=== PATIENT | male | born 1985 | race Hispanic/Latino ===

== ENCOUNTER 2017-07-20 04:10 | Emergency (ER) | payer BC ==
[2017-07-20 04:25] VITALS: PULSE 79; TEMP 98
--- NOTE | 2017-07-20 04:43 | ED PDOC ---
HPI: Abdomen Time Seen by Provider: 07/20/17 04:20 Chief Complaint (Nursing): Abdominal Pain Chief Complaint (Provider): Abdominal Pain History Per: Patient History/Exam Limitations: no limitations Onset/Duration Of Symptoms: Hrs (x12) Current Symptoms Are (Timing): Still Present Additional Complaint(s): Tc Ward is a 31 year old male with a history of diverticular disease that presents to the ED with a chief complaint of abdominal pain that he has been experiencing for the past 12 hours and has been worsening since onset. Patient additionally reports that he has a constipation sensation, and that his last bowel movement was 2 days ago. Patient denies any associated fever , nausea, vomiting, or diarrhea. Past Medical History Reviewed: Historical Data, Nursing Documentation, Vital Signs Vital Signs: Last Vital Signs Temp 98.0 F 07/20/17 07:30 Pulse 79 07/20/17 07:30 Resp 16 07/20/17 07:30 BP 122/65 07/20/17 07:30 Pulse Ox 97 07/20/17 09:10 - Medical History PMH: Back Problems, Diverticulitis, Sleep Apnea - Surgical History Surgical History: No Surg Hx - Family History Family History: States: Unknown Family Hx - Social History Current smoker - smoking cessation education provided: No Alcohol: None Drugs: Denies - Home Medications Home Medications: Ambulatory Orders Medication Instructions Recorded Polyethylene Glycol 3350 [Miralax] 17 gr PO DAILY #30 packet 07/20/17 Sod Phos,M-B/Na Phos,Di-Ba [Fleet 133 ml RC QOTHERDAY #3 enema 07/20/17 Enema] - Allergies Allergies/Adverse Reactions: Allergies Allergy/AdvReac Type Severity Reaction Status Date / Time No Known Allergies Allergy Verified 08/31/15 05:57 Review of Systems ROS Statement: Except As Marked, All Systems Reviewed And Found Negative Gastrointestinal: Positive for: Abdominal Pain Physical Exam - Reviewed Nursing Documentation Reviewed: Yes Vital Signs Reviewed: Yes - Physical Exam Appears: Positive for: Non-toxic, No Acute Distress Head Exam: Positive for: ATRAUMATIC Skin: Positive for: Normal Color, Warm Eye Exam: Positive for: Normal appearance, EOMI, PERRL ENT: Positive for: Normal ENT Inspection Neck: Positive for: Normal, Supple Cardiovascular/Chest: Positive for: Regular Rate, Rhythm. Negative for: Murmur Respiratory: Positive for: Normal Breath Sounds. Negative for: Wheezing Gastrointestinal/Abdominal: Positive for: Tenderness (Lower abdominal TTP, RUQ TTP). Negative for: Normal Exam Back: Positive for: Normal Inspection. Negative for: L CVA Tenderness, R CVA Tenderness Extremity: Positive for: Normal ROM. Negative for: Deformity, Swelling Neurologic/Psych: Positive for: Alert, Oriented. Negative for: Motor/Sensory Deficits - Laboratory Results Result Diagrams: 07/20/17 04:56 07/20/17 04:56 - ECG O2 Sat by Pulse Oximetry: 97 (RA) Pulse Ox Interpretation: Normal Medical Decision Making Medical Decision Making: Impression: 31 year old male with abdominal pain and history of diverticular disease Plan: * X-Ray Abdomen with Chest * CMP * CBC * Lipase * Urine dip * Urinalysis * Toradol 30 mg IV * Reevaluation 5:10 CT Scan Abd/Pelvis with PO or IV contrast ordered. 7:00 Patient signed out to Dr. Rios pending CT Scan. Scribe Attestation: Documented by Maryana Pina, acting as a scribe for Haile Hoff MD. Provider Scribe Attestation: All medical record entries made by the Scribe were at my direction and personally dictated by me. I have reviewed the chart and agree that the record accurately reflects my personal performance of the history, physical exam, medical decision making, and the department course for this patient. I have also personally directed, reviewed, and agree with the discharge instructions and disposition. Disposition - Clinical Impression Clinical Impression: Fecal retention - Patient ED Disposition Is Patient to be Admitted: Transfer of Care - Disposition Disposition: Transfer of Care Disposition Time: 07:00 Condition: STABLE Prescriptions: Polyethylene Glycol 3350 [Miralax] 17 gr PO DAILY #30 packet Sod Phos,M-B/Na Phos,Di-Ba [Fleet Enema] 133 ml RC QOTHERDAY #3 enema Instructions: Laxative, Stool Softeners (By mouth), Constipation (ED), High Fiber Diet (ED) Forms: [employer] (Turkish) Patient Signed Over To: Mercedez Rios
[2017-07-20] MEDS ORDERED: Iohexol 240 (50 ml) PO ONE (05:10)
[2017-07-20 05:14] LABS: BASO % 0.5 % (0.0-2.0); EOS # 0.3 K/uL (0.0-0.7); EOS % 2.7 % (0.0-4.0); HEMOGLOBIN 13.6 g/dL (12.0-18.0); LYMPH # 2.8 K/uL (1.0-4.3); LYMPH % 29.4 % (20.0-40.0); MEAN CELL VOLUME 84.1 fl (80.0-94.0); MEAN CORPUSCULAR HEMOGLOBIN 27.8 pg (27.0-31.0); MEAN PLATELET VOLUME 8.2 fl (7.2-11.7); MONO % 10.2 % (0.0-10.0); NEUT # 5.4 K/uL (1.8-7.0); NEUT % 57.2 % (50.0-75.0); NRBC % 0.1 % (0.0-0.0); RBC 4.9 Mil/uL (4.40-5.90); RED CELL DISTRIBUTION WIDTH 13.7 % (11.5-14.5); WHITE BLOOD COUNT 9.5 K/uL (4.8-10.8)
[2017-07-20 05:15] LABS: URINE BACTERIA RARE (<OCC); URINE BILIRUBIN NEGATIVE (NEGATIVE); URINE BLOOD NEGATIVE (NEGATIVE); URINE CLARITY CLEAR (Clear); URINE COLOR STRAW (YELLOW); URINE GLUCOSE (UA) NEG (Normal); URINE LEUKOCYTE ESTERASE NEG Leu/uL (Negative); URINE NITRATE NEGATIVE (NEGATIVE); URINE PROTEIN NEGATIVE (NEGATIVE); URINE UROBILINOGEN 0.2-1.0 mg/dL (0.2-1.0)
[2017-07-20 05:32] LABS: ALB/GLOB RATIO 1.4 (1.0-2.1); ALBUMIN 4.4 g/dL (3.5-5.0); ALT/SGPT 37 U/L (21-72); AST/SGOT 23 U/L (17-59); BLOOD UREA NITROGEN 15 mg/dl (9-20); CALCIUM 9.6 mg/dL (8.4-10.2); GFR AFRICAN-AMERICAN > 60; GFR NON-AFRICAN AMERICAN > 60; LIPASE 98 U/L (23-300)
[2017-07-20] MEDS ORDERED: Iohexol 240 (50 ml) ONE (05:40)
--- NOTE | 2017-07-20 07:10 | ED PDOC ---
- Laboratory Results Result Diagrams: 07/20/17 04:56 07/20/17 04:56 - ECG O2 Sat by Pulse Oximetry: 97 (RA) Pulse Ox Interpretation: Normal Medical Decision Making Medical Decision Making: Time: 7:00 --Patient signed out to me by Dr. Hoff pending CT. Scribe Attestation: Documented by Carlos Vazquez, acting as a scribe for Dr. Mercedez Rios MD. Provider Scribe Attestation: All medical record entries made by the Scribe were at my direction and personally dictated by me. I have reviewed the chart and agree that the record accurately reflects my personal performance of the history, physical exam, medical decision making, and the department course for this patient. I have also personally directed, reviewed, and agree with the discharge instructions and disposition. CT scan shows stool retention as the significant finding. Will d/c Disposition Doctor Will See Patient In The: Office Counseled Patient/Family Regarding: Diagnosis, Need For Followup - Clinical Impression Clinical Impression: Fecal retention - POA Present On Arrival: None - Disposition Disposition: Routine/Home Disposition Time: 09:07 Condition: STABLE Prescriptions: Polyethylene Glycol 3350 [Miralax] 17 gr PO DAILY #30 packet Sod Phos,M-B/Na Phos,Di-Ba [Fleet Enema] 133 ml RC QOTHERDAY #3 enema Instructions: High Fiber Diet (ED), Constipation (ED), Laxative, Stool Softeners (By mouth) Forms: [employer] (Pashto)
[2017-07-20] MEDS ORDERED: Sodium Chloride 0.9% 50 ML IV ONE (07:24)
[2017-07-20] MEDS ORDERED: Iohexol 300 100 ML IJ ONE (07:24)
[2017-07-20 08:06] VITALS: BP 122/65; RESP 16
--- NOTE | 2017-07-20 08:55 | CT ---
PROCEDURE: CT Abdomen and Pelvis with contrast HISTORY: abd pain COMPARISON: None. TECHNIQUE: Contrast dose: 95 mL Omnipaque 300 Radiation dose: Total exam DLP = 1033 mGy-cm. This CT exam was performed using one or more of the following dose reduction techniques: Automated exposure control, adjustment of the mA and/or kV according to patient size, and/or use of iterative reconstruction technique. FINDINGS: LOWER THORAX: Unremarkable. LIVER: Unremarkable. No gross lesion or ductal dilatation. GALLBLADDER AND BILE DUCTS: Unremarkable. PANCREAS: Unremarkable. No gross lesion or ductal dilatation. SPLEEN: Unremarkable. ADRENALS: Unremarkable. No mass. KIDNEYS AND URETERS: Unremarkable. No hydronephrosis. No solid mass. VASCULATURE: Unremarkable. No aortic aneurysm. BOWEL: Stool retention.No obstruction. No gross mural thickening. APPENDIX: Normal appendix. PERITONEUM: Unremarkable. No free fluid. No free air. LYMPH NODES: Unremarkable. No enlarged lymph nodes. BLADDER: Unremarkable. REPRODUCTIVE: Unremarkable. BONES: No acute fracture. OTHER FINDINGS: None. IMPRESSION: Stool retention. Otherwise unremarkable exam without significant or acute findings appreciated
[2017-07-20 09:10] VITALS: O2SAT 97
--- NOTE | 2017-07-20 10:20 | RAD ---
HISTORY: abd pain COMPARISON: No prior. FINDINGS: BOWEL: Extensive stool retention. No obstruction. No free air. BONES: Normal. OTHER FINDINGS: No pulmonary infiltrate IMPRESSION: No pulmonary infiltrate. No mechanical bowel obstruction appreciated. Extensive stool retention
== END 2017-07-20 09:16 | disposition home or self-care (01) ==
LOC: H.ER 04:10
DX: K56.41 Fecal impaction (principal)
CPT/HCPCS: 74022; 74177; 80053; 81003; 83690; 85025; 96374; 99283; J1885; Q9966; Q9967

== ENCOUNTER 2018-06-26 14:39 | Emergency (ER) | payer BC ==
[2018-06-26 14:48] VITALS: RESP 18; O2SAT 99
--- NOTE | 2018-06-26 15:10 | ED PDOC ---
HPI: Chest Pain Additional History Per: Patient Additional Complaint(s): 32 y/o male with no significant PMH comes to the ER c/o 30 mins hx of left side chest pain. Patient reports pain started all the sudden, non-radiating, 7/10, dull pain, aggravated by deep inspirations and alleviated by postural changes. Denies any nausea, fever, dizziness, palpitations, SOB or weakness. Patient reports he eats lots of red meat diet. PMH: Denies PSH: Denies Allg: NKDA SH: Half pack per day cig, social alcohol use, denies illicit drug use FH: No family hx of heart conditions ROS: As per HPI <Gypsy Foss - Last Filed: 06/26/18 16:39> <Fidelia Cee - Last Filed: 06/26/18 16:52> Time Seen by Provider: 06/26/18 14:51 Chief Complaint (Nursing): Chest Pain Supervising Attending Note - Supervising Attending Note The Documented history was done by the: Physician Application Support Developer The documented physical exam was done by the: Physician Application Support Developer The documented procedures were done by the: Physician Application Support Developer - Attestation: I have personally seen and examined this patient.: Yes I have fully participated in the care of the patient.: Yes I have reviewed all pertinent clinical information: Yes - Notes: Notes:: agree with resident evaluation, assessment, and plan. Pt safe for discharge home. Follow up with PMD. Heart score suggests low risk of adverse cardiac event. <Fidelia Cee - Last Filed: 06/26/18 16:52> Past Medical History Vital Signs: Last Vital Signs Temp Pulse 60 06/26/18 14:45 Resp 18 06/26/18 14:45 BP 124/75 06/26/18 14:45 Pulse Ox 99 06/26/18 14:45 - Medical History PMH: Back Problems, Diverticulitis, Sleep Apnea - Family History Family History: States: Unknown Family Hx <Gypsy Foss - Last Filed: 06/26/18 16:39> Vital Signs: Last Vital Signs Temp Pulse 60 06/26/18 14:45 Resp 18 06/26/18 14:45 BP 124/75 06/26/18 14:45 Pulse Ox 99 06/26/18 16:39 <Fidelia Cee - Last Filed: 06/26/18 16:52> - Home Medications Home Medications: Ambulatory Orders Medication Instructions Recorded Polyethylene Glycol 3350 [Miralax] 17 gr PO DAILY #30 packet 07/20/17 Sod Phos,M-B/Na Phos,Di-Ba [Fleet 133 ml RC QOTHERDAY #3 enema 07/20/17 Enema] - Allergies Allergies/Adverse Reactions: Allergies Allergy/AdvReac Type Severity Reaction Status Date / Time No Known Allergies Allergy Verified 08/31/15 05:57 Review of Systems Constitutional: Negative for: Fever Eyes: Negative for: Pain ENT: Negative for: Ear Pain Cardiovascular: Positive for: Chest Pain. Negative for: Palpitations, Orthopnea Respiratory: Negative for: Cough, Shortness of Breath Gastrointestinal: Negative for: Nausea, Vomiting Genitourinary Male: Negative for: Dysuria Musculoskeletal: Negative for: Neck Pain Neurological: Negative for: Weakness Psych: Negative for: Anxiety <Gypsy Foss - Last Filed: 06/26/18 16:39> Physical Exam - Physical Exam Appears: Positive for: No Acute Distress Head Exam: Positive for: NORMAL INSPECTION Skin: Positive for: Normal Color Eye Exam: Positive for: Normal appearance ENT: Positive for: Normal ENT Inspection Neck: Positive for: Normal, Painless ROM Cardiovascular/Chest: Positive for: Regular Rate, Rhythm, Chest Non Tender. Negative for: Edema, JVD, Murmur, Bradycardia, Tachycardia Respiratory: Positive for: Normal Breath Sounds. Negative for: Decreased Breath Sounds, Accessory Muscle Use, Crackles Gastrointestinal/Abdominal: Positive for: Normal Exam, Bowel Sounds, Soft. Negative for: Tenderness Back: Positive for: Normal Inspection. Negative for: L CVA Tenderness, R CVA Tenderness Neurologic/Psych: Positive for: Alert, cherry grower II-XII, Oriented <Gypsy Foss - Last Filed: 06/26/18 16:39> - Laboratory Results Result Diagrams: 06/26/18 15:08 06/26/18 15:08 - ECG O2 Sat by Pulse Oximetry: 99 - Progress ED Course And Treament: A/P: 32 y/o male comes to ER c/o chest pain, r/o ACS vs pericarditis/Pleuritis - CBC, CMP - Trop - EKG - CXR - TOradol - Protonix - Reevaluation Case discussed with Dr. Cee CBC, BMP, Trop, CxR and EKG reviewed: Normal - Patient agrees with Discharge plan - PMD f/u in 2 days instructed - ER precautions discussed Re-evaluation Time: 16:26 Condition: Improved <Gypsy Foss - Last Filed: 06/26/18 16:39> - Laboratory Results Result Diagrams: 06/26/18 15:08 06/26/18 15:08 Lab Results: Troponin I < 0.0120 ng/mL (0.00-0.120) 06/26/18 15:08 <Fidelia Cee - Last Filed: 06/26/18 16:52> Medical Decision Making Medical Decision Making: Non-Cardiac chest pain <Gypsy Foss - Last Filed: 06/26/18 16:39> Disposition - Patient ED Disposition Is Patient to be Admitted: No - Disposition Disposition: Routine/Home Disposition Time: 16:30 <Gypsy Foss - Last Filed: 06/26/18 16:39> <Fidelia Cee - Last Filed: 06/26/18 16:52> - Clinical Impression Clinical Impression: Atypical chest pain, Non-cardiac chest pain - Disposition Referrals: SOCORRO TURNER MD [Other] Condition: STABLE Instructions: Chest Pain That Is Not Caused by the Heart (DC), Chest Pain (DC) Forms: [employer] (Citizen Of [place]) Print Language: ALBANIAN
[2018-06-26] MEDS ORDERED: Pantoprazole 40 mg EC Tab PO ONE (15:11)
--- NOTE | 2018-06-26 15:25 | RAD ---
Date of service: 06/26/2018 HISTORY: possible admission COMPARISON: 07/20/2017 FINDINGS: LUNGS: No active pulmonary disease. PLEURA: No significant pleural effusion identified, no pneumothorax apparent. CARDIOVASCULAR: No aortic atherosclerotic calcification present. Normal cardiac size. No pulmonary vascular congestion. OSSEOUS STRUCTURES: No significant abnormalities. VISUALIZED UPPER ABDOMEN: Normal. OTHER FINDINGS: None. IMPRESSION: No active disease.
[2018-06-26 15:31] LABS: BASO % 0.7 % (0.0-2.0); EOS # 0.1 K/uL (0.0-0.7); EOS % 2.4 % (0.0-4.0); HEMOGLOBIN 14.7 g/dL (12.0-18.0); LYMPH # 1.7 K/uL (1.0-4.3); LYMPH % 31.4 % (20.0-40.0); MEAN CORPUSCULAR HEMOGLOBIN 28.1 pg (27.0-31.0); MEAN CORPUSCULAR HGB CONC 33.5 g/dL (33.0-37.0); MEAN PLATELET VOLUME 8.1 fl (7.2-11.7); MONO # 0.5 K/uL (0.0-0.8); MONO % 9.6 % (0.0-10.0); NEUT # 3.1 K/uL (1.8-7.0); NEUT % 55.9 % (50.0-75.0); RBC 5.23 Mil/uL (4.40-5.90); RED CELL DISTRIBUTION WIDTH 13.4 % (11.5-14.5); WHITE BLOOD COUNT 5.5 K/uL (4.8-10.8)
[2018-06-26 16:12] LABS: BLOOD UREA NITROGEN 19 mg/dl (9-20); CALCIUM 9.7 mg/dL (8.4-10.2); GFR NON-AFRICAN AMERICAN > 60
[2018-06-26 16:52] VITALS: BP 121/70; PULSE 57
--- NOTE | 2018-06-27 19:49 | CARD ---
APPROVED REPORT Date of service: 06/26/2018 EKG Measurement Heart [id number] [id number] <Conclusion> Sinus bradycardia Otherwise normal ECG
== END 2018-06-26 16:51 | disposition home or self-care (01) ==
LOC: H.ER 14:39
DX: R07.89 Other chest pain (principal)
CPT/HCPCS: 71045; 80048; 84484; 85025; 87804; 93005; 96372; 99283; J1885